=== PATIENT | female | born 1965 | race African-American/Black ===

== ENCOUNTER 2017-05-19 20:03 | Emergency (ER) | payer MEDICAID ==
[~2017-05-19] VITALS: Ht 162.6 cm; Wt 59.0 kg
[2017-05-19 20:24] VITALS: BP 172/102
== END 2017-05-20 08:11 | disposition left against medical advice (07) ==
LOC: EDBD 20:03 → ER 20:03
DX: F10.129 Alcohol abuse with intoxication, unspecified (principal); Z53.21 Procedure and treatment not carried out due to patient leaving prior to being seen by health care provider

== ENCOUNTER 2018-01-18 18:43 | Emergency (ER) | payer MEDICAID ==
[~2018-01-18] VITALS: Ht 157.5 cm; Wt 66.0 kg
[2018-01-18] MEDS ORDERED: PHEN100C4 PO (18:49)
[2018-01-18] MEDS ORDERED: SODIUM CHLORIDE 0.9% 1,000 ML IV ONE (19:15)
[2018-01-18 19:44] LABS: BASOPHILS % 0.9 % (0.0-2.0); EOSINOPHILS % 4.2 % (0.0-5.0); HEMATOCRIT. 33.4 % (36.0-48.0); HEMOGLOBIN. 11.1 g/dL (12.0-16.0); LYMPHOCYTES % 52.6 % (20.0-50.0); MEAN CORPUSCULAR HEMOGLOBIN 31.5 pg (28.0-32.0); MEAN CORPUSCULAR VOLUME 94.8 fL (81.0-99.0); MEAN PLATELET VOLUME 7.5 fl (7.4-10.4); NEUTROPHILS % 36.3 % (40.0-76.0); PLATELET 224 x1000/uL (130-400); RED BLOOD CELL COUNT 3.52 mill/uL (4.2-5.4)
[2018-01-18 19:47] LABS: CHLORIDE 109 mEq/L (98-107)
[2018-01-18] MEDS ORDERED: PHENYTOIN SODIUM 1,000 MG in SODIUM CHLORIDE 0.9% 100 ML IV ONE (20:15)
[2018-01-18 20:17] LABS: ETHANOL BLOOD 313 mg/dL
[2018-01-19 03:00] VITALS: BP 98/61
== END 2018-01-19 06:33 | disposition home or self-care (01) ==
LOC: ER 18:43
DX: F10.229 Alcohol dependence with intoxication, unspecified (principal); D64.9 Anemia, unspecified; G40.909 Epilepsy, unspecified, not intractable, without status epilepticus; F17.210 Nicotine dependence, cigarettes, uncomplicated; I10 Essential (primary) hypertension; E11.9 Type 2 diabetes mellitus without complications; Y90.8 Blood alcohol level of 240 mg/100 ml or more
CPT/HCPCS: 36415; 70450; 80053; 80185; 85025; 96361; 96365; 99285; G0482; J1165; J7030; Z7610; J7050